=== PATIENT | female | born 1965 | race Caucasian/White ===

== ENCOUNTER → 2017-05-30 13:41 | Outpatient (CLI) | payer BC ==
[2016-04-28 12:35] VITALS: BMI 24.2
[~2017-05-30 13:41] MED LIST: ALLEGRA-D1 TAB.SR . PO; AZASITE2.5 ML EACH EYE; CALCIUM 500 + D1 TAB PO; COLACE100 MG PO; CYCLOBENZAPRINE10 MG PO; LUNESTA3 MG PO; METAMUCIL SUGAR1 PKT PO; PROBIOTIC1 EAC1 PO; ULTRAM50 MG PO
== END | disposition home or self-care (01) ==
LOC: D.MAMMO 08:30
DX: Z12.31 Encounter for screening mammogram for malignant neoplasm of breast (principal)